=== PATIENT | female | born 1940 | race Caucasian/White ===

== ENCOUNTER 2017-02-01 09:47 | Observation (INO) | payer MEDICARE, OTHER ==
[~2017-02-01] VITALS: Ht 160 cm; Wt 94.0 kg
[~2017-02-01 09:47] MED LIST: ADLT ASA LOW81 MG PO; ALDACTONE25 MG PO; ASA LO-DOSE81 MG OR; BABY ASPIRIN81 MG OR; BACTRIM DS1 TAB PO; CALCIUM500 M1 OR; CARDIZEM CD120 MG PO; CIPROFLOXACN500 MG PO; CORDARONE200 MG OR; COUMADIN2 MG OR; COUMADIN2.5 MG OR; COUMADIN2.5 MG PO; COUMADIN5 MG PO; CRANBERRY PO; CRANBERRY1 TA1 PO; CRANBERRY250 MG OR; DIAZEPAM2 M1 PO; DOXYCYCL HYC100 MG PO; FISH OIL1 CAP PO; FOSAMAX70 MG OR; HYDRALAZINE50 MG PO; ISOSORB MONO60 MG PO; LASIX 20 MG TAB20 MG PO; LOPRESSOR 550 MG/TAB PO; LOPRESSOR12.5 MG OR; LOPRESSOR25 MG PO; LORTAB 5 OR; LOSARTAN/HCT1 TA2 PO; LOVASTATIN10 MG OR; LOVASTATIN40 M1 PO; MACROBID100 MG OR; MACRODANTIN50 MG PO; MAGNESIUM250 M1 PO; MAGNESIUM250 M2 PO; MAGNESIUM30 MG OR; METOPROL TAR25 M1 PO; NAPROXEN250 MG PO; NITROFUR MAC50 MG PO; NITROFURANTN100 MG PO; NITROSTAT0.4 MG PO; NYSTATIN100000 M4 TOP; OMEPRAZOLE20 MG PO; PLAVIX75 MG PO; PRILOSEC20 MG PO; PROPAFENONE150 M1 PO; TRANSDERM-NITR0.4 MG TD; VITAMIN D32000 UNIT PO; WARFARIN SODIUM5 MG PO; WARFARIN2 MG PO; WARFARIN4 MG PO
[2017-02-01 10:38] LABS: HEMATOCRIT 38.8 % (37.0-47.0); HEMOGLOBIN 12.4 g/dl (12.0-16.0); IMMATURE GRANULOCYTES 0.3 % (0.0-1.0); MEAN CELL VOLUME 90.9 fL CALC (80.0-100.0); NEUT# 4.99 thou/uL (2.00-7.15); RED BLOOD COUNT 4.27 mill/uL (4.20-5.60); RED CELL DISTRI WIDTH 14.1 % (11.5-15.5)
[2017-02-01 10:40] LABS: ALBUMIN 4.1 g/dL (3.2-5.0); AMYLASE 87 u/l (30-110); BILIRUBIN, TOTAL 0.6 mg/dL (0.0-1.4); BUN 21 mg/dL (8-23); BUN/CREATININE RATIO 17 (12-20 (CALC)); CALCIUM 9.2 mg/dL (8.4-10.2); CARBON DIOXIDE 29 mmol/l (22-30); CHLORIDE 96 mmol/l (95-108); CREATININE 1.2 mg/dL (0.5-1.0); GFR 43 ML/MIN (>=60 (CALC)); GFR FOR AFR.AMER. 53 ML/MIN (>=60 (CALC)); GLUCOSE 121 mg/dL (82-115); LIPASE 108 u/l (23-300); POTASSIUM 3.9 mmol/l (3.5-5.1); SGOT/AST 21 u/l (9-36); TOTAL PROTEIN 7.2 g/dL (6.3-8.2)
[2017-02-01 10:42] LABS: ALKALINE PHOSPHATASE 62 u/l (38-126); SGPT/ALT 23 u/l (11-66)
[2017-02-01 10:43] LABS: INTERNATIONAL NORMALIZED RATIO 2.2 RATIO (0.7-1.3)
[2017-02-01 10:44] LABS: ANION GAP 16 (6-22 (CALC)); SODIUM 137 mmol/l (137-146)
[2017-02-01 13:34] VITALS: BP 130/67
[2017-02-01 13:45] LABS: URINE BILIRUBIN - DIPSTICK NEGATIVE (NEGATIVE); URINE BLOOD DIPSTICK TRACE-INTACT (NEGATIVE); URINE COLOR YELLOW; URINE GLUCOSE - DIPSTICK NEGATIVE (NEGATIVE); URINE KETONE NEGATIVE (NEGATIVE); URINE NITRITE - DIPSTICK NEGATIVE (Negative); URINE PH 6.5 (4.5-8.0); URINE PROTEIN - DIPSTICK NEGATIVE (NEG-TRACE); URINE UROBILINOGEN - DIPSTICK 0.2 E.U./dL (0.2)
[2017-02-01 13:46] LABS: URINE LEUK ESTERASE SMALL (NEGATIVE)
[2017-02-01 13:47] LABS: URINE CLARITY SLIGHT CLOUDY
[2017-02-01 13:55] LABS: URINE BACTERIA MODERATE hpf; URINE EPITHELIAL CELLS MODERATE EPI/hpf (0-FEW); URINE WBC 20-50 WBC/hpf (0-5)
[2017-02-01 14:50] VITALS: BP 133/64
[2017-02-01 19:30] VITALS: BP 116/61
[2017-02-02 05:23] VITALS: BP 105/66
[2017-02-02 05:35] LABS: HEMOGLOBIN 12.5 g/dl (12.0-16.0); IMMATURE GRANULOCYTES 0.4 % (0.0-1.0); MEAN CELL VOLUME 90.5 fL CALC (80.0-100.0); MEAN CORPUSCULAR HGB CONC 32.1 g/L CALC (32.0-36.0); NEUT# 5.73 thou/uL (2.00-7.15); RED BLOOD COUNT 4.31 mill/uL (4.20-5.60); RED CELL DISTRI WIDTH 13.9 % (11.5-15.5)
[2017-02-02 05:39] LABS: INTERNATIONAL NORMALIZED RATIO 2.9 RATIO (0.7-1.3); PROTHROMBIN TIME 33.8 SECONDS (9.0-12.5)
[2017-02-02 05:41] LABS: CALCIUM 9.2 mg/dL (8.4-10.2); CREATININE 1.1 mg/dL (0.5-1.0); POTASSIUM 3.8 mmol/l (3.5-5.1)
[2017-02-02 08:30] VITALS: BP 103/64
[2017-02-02 11:18] VITALS: BP 121/63
== END 2017-02-02 14:35 | disposition home or self-care (01) ==
LOC: ENPENDDIS → ED 09:47 → ED-I 10:45 → ED 11:12 → MS2 11:13
PROVIDERS: Emergency Medicine; ADMIT Internal Medicine; ATTEND Internal Medicine
DX: I25.118 Atherosclerotic heart disease of native coronary artery with other forms of angina pectoris (principal); I11.9 Hypertensive heart disease without heart failure; E78.5 Hyperlipidemia, unspecified; I48.0 Paroxysmal atrial fibrillation; M81.0 Age-related osteoporosis without current pathological fracture; E66.01 Morbid (severe) obesity due to excess calories; R73.9 Hyperglycemia, unspecified; Z68.36 Body mass index [BMI] 36.0-36.9, adult; Z95.5 Presence of coronary angioplasty implant and graft; Z95.1 Presence of aortocoronary bypass graft; Z79.899 Other long term (current) drug therapy; Z79.01 Long term (current) use of anticoagulants

== ENCOUNTER 2018-01-28 08:39 | Observation (INO) | payer MEDICARE, OTHER ==
[~2018-01-28] VITALS: Ht 162.6 cm; Wt 75.4 kg
[~2018-01-28 08:39] MED LIST changes: +AMLODIPINE5 MG PO; +DOCUSATE CAL240 MG PO; +K-TABS10 MEQ PO; +MIRALAX3350 NF PO; +SURFAK240 MG/CAP PO
--- NOTE | 2018-01-28 08:55 | NUR ---
PATIENT TO ROOM VIA WHEELCHAIR AND PHYSICIAN AT BEDSIDE FOR EVAL
[2018-01-28] MEDS ORDERED: WARFARIN2 MG PO (09:09)
[2018-01-28] MEDS ORDERED: WARFARIN4 MG PO ×2 (09:09→09:10)
[2018-01-28] MEDS ORDERED: FUROSEMIDE20 MG PO (09:16)
[2018-01-28 09:26] LABS: HEMATOCRIT 37.7 % (37.0-47.0); HEMOGLOBIN 11.7 g/dl (12.0-16.0); IMMATURE GRANULOCYTES 0.4 % (0.0-1.0); MEAN CELL VOLUME 93.3 fL CALC (80.0-100.0); NEUT# 3.67 thou/uL (2.00-7.15); RED BLOOD COUNT 4.04 mill/uL (4.20-5.60); RED CELL DISTRI WIDTH 14.8 % (11.5-15.5)
--- NOTE | 2018-01-28 09:31 | NUR ---
PT STATES SHE REALLY DOESNT WANT THE MORPHINE, HER PAIN IS NOT THAT BAD, PLUS SHE STATES SHE HAD MORPHINE ONE TIME AFTER A SURGERY AND SHE FELT LIKE "I WAS GOING CRAZY". NOTIFIED, AND DECISION MADE AFTER SPOKE WITH PT IS TO HOLD GIVING THE MORPHINE TO SEE IF PAIN GOES AWAY WITH THE OTHER MEDICATIONS.
[2018-01-28 09:34] LABS: ALKALINE PHOSPHATASE 65 u/l (38-126); ANION GAP 16 (6-22 (CALC)); BILIRUBIN, TOTAL 0.5 mg/dL (0.0-1.4); BUN 16 mg/dL (8-23); BUN/CREATININE RATIO 16 (12-20 (CALC)); CARBON DIOXIDE 29 mmol/l (22-30); CHLORIDE 101 mmol/l (95-108); GFR 53 ML/MIN (>=60 (CALC)); GFR FOR AFR.AMER. > 60 ML/MIN (>=60 (CALC)); POTASSIUM 4.4 mmol/l (3.5-5.1); SGOT/AST 25 u/l (9-36); SGPT/ALT 33 u/l (11-66); SODIUM 141 mmol/l (137-146); TOTAL PROTEIN 7.2 g/dL (6.3-8.2)
--- NOTE | 2018-01-28 09:38 | NUR ---
PT UP TO BATHROOM
[2018-01-28 09:44] LABS: D-DIMER 0.31 mg/L (0.19-0.60)
[2018-01-28 09:47] LABS: PROTHROMBIN TIME 63.6 SECONDS (9.0-12.5)
[2018-01-28 09:48] LABS: INTERNATIONAL NORMALIZED RATIO 5.5 RATIO (0.7-1.3)
--- NOTE | 2018-01-28 10:00 | NUR ---
PT RESTING QUIETLY, NO DISTRESS NOTED, LAUGHING AND TALKING WITH STAFF MEMBERS, WATCHING TV.
--- NOTE | 2018-01-28 10:35 | NUR ---
IN ROOM TO DC IV. PT STATES "I CANT GO YET I STILL HAVE THE PAINS AND MY BLOOD PRESSURE WENT UP, AND THE DOCTOR SAID HE WAS COMING BACK TO CHECK SOMETHING." INFORMED PT WOULD SPEAK WITH EDP REGARDING COMPLAINTS. DR SCHRADER MADE AWARE ORDER FOR CLONIDINE GIVEN.
--- NOTE | 2018-01-28 11:23 | NUR ---
UPON GOING INTO SPEAK TO THE PT ABOUT DISCHARGE , SHE STATES THAT SHE IS JUST STARTED HAVING CHEST PAIN AGAIN, MADE AWARE. PT STATES SHE DOESNT FEEL LIKE SHE SHOULD GO HOME AND WANTS HER DOCTOR NOTIFIED.
--- NOTE | 2018-01-28 12:02 | NUR ---
PT TAKEN TO MED SURG AFTER REPORT CALLED. PER EVONNE AND TELE.
[2018-01-28 12:05] VITALS: BP 95/63
--- NOTE | 2018-01-28 12:05 | NUR ---
RECEIVED PT FROM ER VIA STRETCHER ACCOMPANIED BY STAFF. IV SITE IS FREE FROM REDNESS OR EDEMA. HR IS REG,PULSES ARE STRONG X4, ABD IS SOFT WITH ACTIVE BS. TELE MONITOR IN PLACE. CONTINUE TO OBSERVE AND MONITOR.
--- NOTE | 2018-01-28 16:00 | NUR ---
pt is relaxing in bed left a message with BY FOR PT BEING ADMITTED AND HAVING CP.
[2018-01-28 16:30] VITALS: BP 110/68
[2018-01-28 19:35] VITALS: BP 108/64
--- NOTE | 2018-01-28 19:40 | NUR ---
SPOKE WITH RE: CONSULTATION, THE PT /INR RESULTS. WILL RECHECK ON PT AND IF ANY RESULTS ARE ABN THEN WILL SHIP PT OUT.
--- NOTE | 2018-01-28 20:00 | NUR ---
PATIENT RESTING IN BED AT THIS TIME-AWAKE ALERT AND ORIENTEDX3-STATES THAT HER CHEST PAIN COMES AND GOES BUT IS NOT HAVING ANY CHEST PAIN AT THIS TIME. TELE MONITORING DEVICE INPLACE. HEP LOCK TO LEFT AC INTACT AND APPEARS HEALTHY AT THIS TIME. SAFETY PRECAUTIONS REINFORCED. CALL LIGHT IN REACH. WILL CONT TO MONITOR.
--- NOTE | 2018-01-29 03:51 | NUR ---
PATIENT APPEARS SLEEPING AT THIS TIME. CALL LIGHT IN REACH. WILL CONT TO MONITOR.
[2018-01-29 04:40] VITALS: BP 126/66
--- NOTE | 2018-01-29 04:56 | NUR ---
PATIENT RESTING IN BED-AWAKE ALERT AND ORIENTEDX3. LAB WORK DRAWN ORDERED. PATIENT WITH BANDAID TO ABD/UMBILICAL AREA WITH ABD HERNIA NOTED. STATES THAT SHE HAS ALREADY SEEN DR. BOWIE REGUARDING FURTHER TREATMENT. CALL LIGHT IN REACH. WILL CONT TO MONITOR.
[2018-01-29 05:19] LABS: HEMATOCRIT 32.9 % (37.0-47.0); HEMOGLOBIN 10.4 g/dl (12.0-16.0); IMMATURE GRANULOCYTES 0.2 % (0.0-1.0); MEAN CELL VOLUME 92.2 fL CALC (80.0-100.0); MEAN CORPUSCULAR HGB 29.1 pG CALC (26.0-32.0); MEAN CORPUSCULAR HGB CONC 31.6 g/L CALC (32.0-36.0); NEUT# 2.44 thou/uL (2.00-7.15); RED BLOOD COUNT 3.57 mill/uL (4.20-5.60); RED CELL DISTRI WIDTH 14.9 % (11.5-15.5)
[2018-01-29 05:28] LABS: INTERNATIONAL NORMALIZED RATIO 2.8 RATIO (0.7-1.3); PROTHROMBIN TIME 31.8 SECONDS (9.0-12.5)
[2018-01-29 05:34] LABS: ALBUMIN 3.2 g/dL (3.2-5.0); ALKALINE PHOSPHATASE 46 u/l (38-126); ANION GAP 15 (6-22 (CALC)); BILIRUBIN, TOTAL 0.4 mg/dL (0.0-1.4); BUN 17 mg/dL (8-23); BUN/CREATININE RATIO 19 (12-20 (CALC)); CARBON DIOXIDE 26 mmol/l (22-30); CHLORIDE 103 mmol/l (95-108); CREATININE 0.9 mg/dL (0.5-1.0); GFR 60 ML/MIN (>=60 (CALC)); GFR FOR AFR.AMER. > 60 ML/MIN (>=60 (CALC)); MAGNESIUM 1.9 mg/dL (1.6-2.3); SGOT/AST 28 u/l (9-36); SGPT/ALT 31 u/l (11-66); SODIUM 140 mmol/l (137-146); TOTAL PROTEIN 5.9 g/dL (6.3-8.2)
[2018-01-29 06:02] LABS: TSH, 3RD GENERATION 2.68 uIU/mL (0.47 - 4.68)
[2018-01-29 08:00] VITALS: BP 134/64
--- NOTE | 2018-01-29 08:00 | NUR ---
PT IS RELAXING IN BED WITH NO DISTRESS NOTED. IV SITE IS FREE FROM REDNESS OR EDEMA. HR IS REG, PULSES ARE STRONG X4, ABD IS SOFT WITH ACTIVE BS , TELE MONITOR IN PLACE.
[2018-01-29 09:15] VITALS: BP 134/64
--- NOTE | 2018-01-29 12:15 | NUR ---
PT IS SITTING ON THE SIDE OF THE BED, IV SITE DISCONTINEUD,CATHETER INTACT.
[2018-01-29] MEDS ORDERED: WARFARIN2 MG PO (12:28)
--- NOTE | 2018-01-29 12:58 | NUR ---
PT RECEIVED DISCHARGE INSTRUCTIONS AND VERBALIZED UNDERSTANDING. IV SITE DISCONTINEUD CATHETER INTACT. NO REDNESS OR EDEMA. TELE MONITOR IS DISCONTINUED.,
--- NOTE | 2018-01-29 13:15 | NUR ---
Discharge instructions given. Patient verbalizes understanding of same. Discharged in stable condition via Wheelchair to Home with family. All belongings sent with pt.ALL INSTRUCTIONS GIVEN AND VERBALIZED UNDERSTANDING.
== END 2018-01-29 13:00 | disposition home or self-care (01) ==
LOC: ED 08:39 → ED-I 09:01 → ED 09:01 → ED-I 11:13 → ED 11:30 → MS2 11:31
PROVIDERS: Family Medicine; Nurse Practitioner Family; ADMIT Internal Medicine; ATTEND Internal Medicine
DX: R07.9 Chest pain, unspecified (principal); I25.118 Atherosclerotic heart disease of native coronary artery with other forms of angina pectoris; I10 Essential (primary) hypertension; E78.5 Hyperlipidemia, unspecified; I48.0 Paroxysmal atrial fibrillation; M81.0 Age-related osteoporosis without current pathological fracture; R79.1 Abnormal coagulation profile; T45.515A Adverse effect of anticoagulants, initial encounter; Z95.1 Presence of aortocoronary bypass graft; Z95.5 Presence of coronary angioplasty implant and graft

== ENCOUNTER 2018-08-11 18:43 | Emergency (ER) | payer MEDICARE, OTHER ==
[~2018-08-11] VITALS: Ht 165.1 cm; Wt 90.9 kg
[~2018-08-11 18:43] MED LIST changes: +FUROSEMIDE20 MG PO
[2018-08-11 20:06] LABS: HEMATOCRIT 28.5 % (37.0-47.0); HEMOGLOBIN 8.6 g/dl (12.0-16.0); IMMATURE GRANULOCYTES 0.2 % (0.0-5.0); MEAN CELL VOLUME 94.4 fL CALC (80.0-100.0); MEAN CORPUSCULAR HGB 28.5 pG CALC (26.0-32.0); MEAN CORPUSCULAR HGB CONC 30.2 g/L CALC (32.0-36.0); NEUT# 2.97 thou/uL (2.00-7.15); RED BLOOD COUNT 3.02 mill/uL (4.20-5.60); RED CELL DISTRI WIDTH 18.4 % (11.5-15.5)
[2018-08-11 20:41] LABS: INTERNATIONAL NORMALIZED RATIO 1.1 RATIO (0.7-1.3)
[2018-08-11 20:42] LABS: ALBUMIN 3.5 g/dL (3.2-5.0); ALKALINE PHOSPHATASE 59 u/l (38-126); ANION GAP 13 (6-22 (CALC)); BILIRUBIN, TOTAL 0.2 mg/dL (0.0-1.4); BUN 23 mg/dL (8-23); BUN/CREATININE RATIO 21 (12-20 (CALC)); CARBON DIOXIDE 26 mmol/l (22-30); CHLORIDE 104 mmol/l (95-108); CREATININE 1.1 mg/dL (0.5-1.0); GFR 48 ML/MIN (>=60 (CALC)); GFR FOR AFR.AMER. 58 ML/MIN (>=60 (CALC)); SGOT/AST 16 u/l (9-36); SODIUM 139 mmol/l (137-146)
[2018-08-11 20:54] LABS: MYOGLOBIN 43 ng/mL (0 - 62)
[2018-08-11 22:14] LABS: URINE BILIRUBIN - DIPSTICK NEGATIVE (NEGATIVE); URINE BLOOD DIPSTICK NEGATIVE (NEGATIVE); URINE COLOR YELLOW; URINE GLUCOSE - DIPSTICK NEGATIVE (NEGATIVE); URINE KETONE NEGATIVE (NEGATIVE); URINE NITRITE - DIPSTICK NEGATIVE (Negative); URINE PH 5.5 (4.5-8.0); URINE PROTEIN - DIPSTICK NEGATIVE (NEG-TRACE); URINE UROBILINOGEN - DIPSTICK 0.2 E.U./dL (0.2)
[2018-08-11 22:15] LABS: URINE CLARITY CLOUDY; URINE LEUK ESTERASE MODERATE (NEGATIVE)
[2018-08-11 22:23] LABS: URINE BACTERIA MODERATE hpf; URINE SQUAMOUS EPITHELIAL CELL FEW EPI/hpf (0-FEW); URINE WBC TNTC WBC/hpf (0-5)
[2018-08-11] MEDS ORDERED: BACTRIM DS1 TAB PO (22:37)
[2018-08-11 23:17] VITALS: BP 139/63
== END 2018-08-11 23:17 | disposition home or self-care (01) ==
LOC: ED 18:43
PROVIDERS: Family Medicine
DX: N39.0 Urinary tract infection, site not specified (principal); R53.1 Weakness; D51.3 Other dietary vitamin B12 deficiency anemia; M19.90 Unspecified osteoarthritis, unspecified site; I10 Essential (primary) hypertension; I25.10 Atherosclerotic heart disease of native coronary artery without angina pectoris; E78.5 Hyperlipidemia, unspecified; Z79.01 Long term (current) use of anticoagulants; Z95.5 Presence of coronary angioplasty implant and graft; Z95.1 Presence of aortocoronary bypass graft

== ENCOUNTER 2018-10-11 07:24 | Day surgery (SDC) | payer MEDICARE, OTHER ==
[~2018-10-11] VITALS: Ht 162.6 cm; Wt 77.6 kg
[~2018-10-11 07:24] MED LIST changes: +MACROBID100 MG PO; +MAGNESIUM OXID400 M2 PO
[2018-10-11 10:25] VITALS: BP 138/70
== END 2018-10-11 10:20 | disposition home or self-care (01) ==
LOC: ENDO 07:24 → ORM 13:15 → ENDO 13:15
PROVIDERS: ATTEND Surgery
PROC: 0DBB8ZX Excision of Ileum, Via Natural or Artificial Opening Endoscopic, Diagnostic (ICD-10-PCS; principal; 2018-10-11)
PROC: 3E0H8GC Introduction of Other Therapeutic Substance into Lower GI, Via Natural or Artificial Opening Endoscopic (ICD-10-PCS; 2018-10-11)
PROC: 0DJ08ZZ Inspection of Upper Intestinal Tract, Via Natural or Artificial Opening Endoscopic (ICD-10-PCS; 2018-10-11)
DX: D64.9 Anemia, unspecified (principal); K63.5 Polyp of colon; K57.31 Diverticulosis of large intestine without perforation or abscess with bleeding; K64.4 Residual hemorrhoidal skin tags; K44.9 Diaphragmatic hernia without obstruction or gangrene

== ENCOUNTER 2018-11-08 08:45 | Emergency (ER) | payer MEDICARE, OTHER ==
[~2018-11-08] VITALS: Ht 162.6 cm; Wt 80.0 kg
[2018-11-08] MEDS ORDERED: CELEBREX100 M1 PO (10:22)
[2018-11-08] MEDS ORDERED: TRAMADOL HYDROC50 MG PO (10:22)
[2018-11-08 10:59] VITALS: BP 173/80
== END 2018-11-08 11:16 | disposition home or self-care (01) ==
LOC: ED 08:45
DX: S40.012A Contusion of left shoulder, initial encounter (principal); S20.212A Contusion of left front wall of thorax, initial encounter; M19.90 Unspecified osteoarthritis, unspecified site; I10 Essential (primary) hypertension; I25.10 Atherosclerotic heart disease of native coronary artery without angina pectoris; E78.5 Hyperlipidemia, unspecified; W18.39XA Other fall on same level, initial encounter; Y92.009 Unspecified place in unspecified non-institutional (private) residence as the place of occurrence of the external cause; Z95.1 Presence of aortocoronary bypass graft; Z95.5 Presence of coronary angioplasty implant and graft

== ENCOUNTER 2018-11-12 11:25 | Emergency (ER) | payer MEDICARE, OTHER ==
[~2018-11-12] VITALS: Ht 162.6 cm; Wt 76.8 kg
[~2018-11-12 11:25] MED LIST changes: +CELEBREX100 M1 PO; +TRAMADOL HYDROC50 MG PO
[2018-11-12 14:07] VITALS: BP 111/58
== END 2018-11-12 14:26 | disposition home or self-care (01) ==
LOC: ED 11:25
DX: M25.512 Pain in left shoulder (principal); M19.90 Unspecified osteoarthritis, unspecified site; I10 Essential (primary) hypertension; I48.91 Unspecified atrial fibrillation; I25.10 Atherosclerotic heart disease of native coronary artery without angina pectoris; E78.5 Hyperlipidemia, unspecified; Z95.1 Presence of aortocoronary bypass graft; Z95.5 Presence of coronary angioplasty implant and graft

== ENCOUNTER → 2018-11-29 | Outpatient (REF) | payer MEDICARE, OTHER | END | disposition home or self-care (01) | LOC: LAB 10:38 | PROVIDERS: ATTEND Internal Medicine | DX: R35.0 Frequency of micturition (principal); B95.2 Enterococcus as the cause of diseases classified elsewhere ==

== ENCOUNTER 2019-01-24 16:30 | Emergency (ER) | payer MEDICARE, OTHER ==
[~2019-01-24] VITALS: Ht 162.6 cm; Wt 80.0 kg
[2019-01-24 17:33] LABS: HEMATOCRIT 32.9 % (37.0-47.0); HEMOGLOBIN 9.6 g/dl (12.0-16.0); IMMATURE GRANULOCYTES 0.3 % (0.0-5.0); MEAN CELL VOLUME 88.4 fL CALC (80.0-100.0); MEAN CORPUSCULAR HGB 25.8 pG CALC (26.0-32.0); MEAN CORPUSCULAR HGB CONC 29.2 g/L CALC (32.0-36.0); NEUT# 3.51 thou/uL (2.00-7.15); RED BLOOD COUNT 3.72 mill/uL (4.20-5.60); RED CELL DISTRI WIDTH 16.5 % (11.5-15.5)
[2019-01-24 18:03] LABS: CREATININE 1.2 mg/dL (0.5-1.0); POTASSIUM 4.8 mmol/l (3.5-5.1)
[2019-01-24 18:10] VITALS: BP 129/57
== END 2019-01-24 18:10 | disposition home or self-care (01) ==
LOC: ED 16:30
PROVIDERS: Family Medicine
DX: G62.9 Polyneuropathy, unspecified (principal); R20.2 Paresthesia of skin; W18.30XA Fall on same level, unspecified, initial encounter; Y92.009 Unspecified place in unspecified non-institutional (private) residence as the place of occurrence of the external cause; I10 Essential (primary) hypertension; I48.91 Unspecified atrial fibrillation; I25.10 Atherosclerotic heart disease of native coronary artery without angina pectoris; Z95.5 Presence of coronary angioplasty implant and graft

== ENCOUNTER 2019-04-08 12:51 | Inpatient (IN) | payer MEDICARE, OTHER ==
[~2019-04-08] VITALS: Ht 160 cm; Wt 70.1 kg
--- NOTE | 2019-04-08 12:51 | NUR ---
PT ARRIVED VIA EMS IN NO ACUTE DISTRESS ALERT AND ORIENTED X3.
--- NOTE | 2019-04-08 12:51 | NUR ---
PT HAS DRIFT AND ATAXIA TO LT UPPER ARM D/T PAIN IN LT HUMERUS FROM A FALL SEVERAL MONTHS AGO
--- NOTE | 2019-04-08 13:30 | NUR ---
PT ALERT AND CONVERSIVE, ALERT AND ORIENTED X3. PT MAEW EXCEPT UNABLE TO LIFT LT ARM VERY FAR D/T PAIN TO LT HUMERUS FROM PREVIOUS FALL (PER PT) DR TURNER AWARE.
[2019-04-08 13:34] LABS: HEMOGLOBIN 10.4 g/dl (12.0-16.0); IMMATURE GRANULOCYTES 0.2 % (0.0-5.0); MEAN CELL VOLUME 93.1 fL CALC (80.0-100.0); MEAN CORPUSCULAR HGB 27.7 pG CALC (26.0-32.0); MEAN CORPUSCULAR HGB CONC 29.7 g/L CALC (32.0-36.0); NEUT# 2.57 thou/uL (2.00-7.15); RED BLOOD COUNT 3.76 mill/uL (4.20-5.60); RED CELL DISTRI WIDTH 20.8 % (11.5-15.5)
[2019-04-08 13:48] LABS: ALBUMIN 3.9 g/dL (3.2-5.0); ALKALINE PHOSPHATASE 58 u/l (38-126); ANION GAP 13 (6-22 (CALC)); BILIRUBIN, TOTAL 0.6 mg/dL (0.0-1.4); BUN 24 mg/dL (8-23); BUN/CREATININE RATIO 20 (12-20 (CALC)); CARBON DIOXIDE 30 mmol/l (22-30); CHLORIDE 99 mmol/l (95-108); CREATININE 1.2 mg/dL (0.5-1.0); GFR 43 ML/MIN (>=60 (CALC)); GFR FOR AFR.AMER. 52 ML/MIN (>=60 (CALC)); POTASSIUM 4.3 mmol/l (3.5-5.1); SGOT/AST 18 u/l (9-36); SODIUM 138 mmol/l (137-146); TOTAL PROTEIN 6.6 g/dL (6.3-8.2)
--- NOTE | 2019-04-08 14:05 | NUR ---
ASSISTED PT TO STANDING POSITION FOR ORTHOSTATIC BPS. PT BECAME VERY DIZZY AND WEAK WITH STANDING, RETURNED TO BED AND PT STATES SHE FEELS BETTER. AWARE.
[2019-04-08] MEDS ORDERED: ASPIRIN81 MG PO (14:11)
[2019-04-08] MEDS ORDERED: VITAMIN D31000 UNI1 PO (14:12)
[2019-04-08] MEDS ORDERED: OMEGA-3 FISH1000 MG PO (14:12)
[2019-04-08] MEDS ORDERED: NITRO-DUR0.4 MG/HR TD (14:13)
[2019-04-08] MEDS ORDERED: PROPAFENONE150 M1 PO (14:14)
[2019-04-08] MEDS ORDERED: CRANBERRY200 MG PO (14:14)
[2019-04-08] MEDS ORDERED: OMEPRAZOLE20 MG PO (14:15)
[2019-04-08] MEDS ORDERED: POT CHLORIDE10 ME1 PO (14:15)
[2019-04-08] MEDS ORDERED: METOPROL TAR25 M1 PO (14:15)
[2019-04-08] MEDS ORDERED: CELECOXIB100 MG PO (14:16)
[2019-04-08] MEDS ORDERED: LOVASTATIN10 MG PO (14:16)
[2019-04-08] MEDS ORDERED: LASIX 20 MG TAB20 MG PO (14:16)
[2019-04-08] MEDS ORDERED: CYMBALTA30 MG PO (14:18)
[2019-04-08 14:40] LABS: URINE BILIRUBIN - DIPSTICK NEGATIVE (NEGATIVE); URINE BLOOD DIPSTICK TRACE-INTACT (NEGATIVE); URINE COLOR YELLOW; URINE GLUCOSE - DIPSTICK NEGATIVE (NEGATIVE); URINE KETONE NEGATIVE (NEGATIVE); URINE NITRITE - DIPSTICK NEGATIVE (Negative); URINE PH 6.5 (4.5-8.0); URINE PROTEIN - DIPSTICK 30 mg/dL (NEG-TRACE); URINE SPECIFIC GRAVITY 1.015; URINE UROBILINOGEN - DIPSTICK 0.2 E.U./dL (0.2)
[2019-04-08 14:41] LABS: URINE LEUK ESTERASE LARGE (NEGATIVE)
[2019-04-08 14:46] LABS: URINE BACTERIA FEW hpf; URINE SQUAMOUS EPITHELIAL CELL FEW EPI/hpf (0-FEW); URINE WBC TNTC WBC/hpf (0-5)
--- NOTE | 2019-04-08 15:05 | NUR ---
FAMILY AT BEDSIDE. VSS. PT LAUGHING AND CONVERSIVE. DENIES CP OR SOB. DENIES DIZZINESS AT THIS TIME. NEURO CHECK WNL.
[2019-04-08] MEDS ORDERED: MACRODANTIN50 MG PO (15:16)
[2019-04-08] MEDS ORDERED: CYMBALTA60 MG PO (15:17)
--- NOTE | 2019-04-08 15:42 | NUR ---
CALLED REPORT TO TELLY TALBOT MS2
--- NOTE | 2019-04-08 15:55 | NUR ---
TRANSPORTED TO AL VIA STRETCHER ON DIRECTOR OF RESOURCE DEVELOPMENT IN NO DISTRESS.
[2019-04-08 16:07] VITALS: BP 153/76
--- NOTE | 2019-04-08 16:11 | NUR ---
ASSESSMENT DONE. PT IS A&O X3. PT DENIES PAIN AT THIS TIME OR DIZZINESS. TELE IN PLACE. RESPS EVEN AND UNLABORED. PT HAS LEFT SIDE WEAKNESS THAT IS NOT NEW. PT HAS A SURGICAL WOUND IN ABD AND STATED ITS BEEN THERE FOR MONTHS. PICTURE TAKEN. PT DENIES NEEDS AT THIS TIME. SAFETY PRECAUTION REINFORCED AND CALL LIGHT.
--- NOTE | 2019-04-08 19:00 | NUR ---
RECEIVED REPORT FROM NURSE ANTIONE PATIENT IN BED, WATCHING TV, EVEN UNLABORED BREATHING CALL LIGHT AT REACH.
[2019-04-08 19:45] VITALS: BP 135/67
--- NOTE | 2019-04-08 20:10 | NUR ---
PATIENT ALERT AMD ORIENTED, ABLE TO MAKE NEEDS KNOWN, WITH AN ONGOING IV OF NORMAL SALINE @100CC/HR INFUSING WELL ON LAC, REMAINS ON TELE SR 61, PATIENT ASSISTED TO THE COMMODE AND ASSISTED BACK IN BED, CALL LIGHT AT REACH.
--- NOTE | 2019-04-08 23:39 | NUR ---
PATIENT ALERT AND ORIENTED, COMPLIANT WITH THE USED OF CALL LIGHT, ASSISTED TO BEDSIDE COMMODE AT THIS TIME, DENIES PAIN OR DISCOMFORTS CALL LIGHT AT REACH.
[2019-04-09] VITALS (8 sets, daily range): BP systolic 123–155; BP diastolic 63–80
--- NOTE | 2019-04-09 04:57 | NUR ---
PATIENT RESTING IN BED, ORTHOSTATIC V/S TAKEN AND RECORDED, CURRENTLY RESTING IN BED EYES CLOSED CALL LIGHT AT REACH.
--- NOTE | 2019-04-09 07:49 | NUR ---
SHIFT CHANGE REPORT, PT AWAKE ALERT AND ORIENTED, NO C/O DISCOMFORT, TELE MONITOR IN PLACE, ALL NEEDS ADDRESSED, CALL WIN IN REACH.
--- NOTE | 2019-04-09 11:30 | NUR ---
SITTING UP IN RECLINER, DR HEREDIA ROUNDED AND DISCUSSED PLAN OF CARE FOR PHYSICAL THERAPY, PT STATED SHE DOES NOT WANT SHAYNE SHAYNE PULLED UP HER ARM BEFORE DURING PHYSICAL THERAPY WHEN SHE HEARD A "POP" IN SHOULDER AND HER SHOULDER SO BADLY THAT SHE HAD TO HAVE ANOTHER SURGERY.
--- NOTE | 2019-04-09 15:30 | NUR ---
ASSISTED TO BSC AND BACK TO BED, ALL NEEDS MET/ADDRESSED, CALL WIN IN REACH.
--- NOTE | 2019-04-09 19:09 | NUR ---
RECEIVED REPORT FROM NURSE LOPEZ, PATIENT APPEARS TO BE SLEPPING WITH EYES CLOSED, NO DISCOMFORTS NOTED AT THIS TIME, WITH EVEN UNLABORED BREATHING.
--- NOTE | 2019-04-09 20:11 | NUR ---
PATIENT ALERT AND ORIENTED ABLE TO MAKE NEEDS KNOWN, EVEN UNLABORED BREATHING, DENIES PAIN OR DISCOMFORT AT THIS TIME, PATIENT ASSISTED TO BED SIDE COMMODE, NOTED TO HAVE WEAKNESS, ON LLE, ON TELE SR 62, WILL CONTINUE TO MONITOR.
--- NOTE | 2019-04-09 23:28 | NUR ---
PATIENT APPEARS TO BED SLEEPING WITH EYES CLOSED WITH EVEN UNLABOTRED BREATHING CALL LIGHT AT REACH.
[2019-04-10] VITALS (8 sets, daily range): BP systolic 104–153; BP diastolic 60–73
--- NOTE | 2019-04-10 04:38 | NUR ---
PATIENT ALERT AND ORIENTED, ABLE TO MAKE NEEDS KNOWN, PATIENT ASSISTED TO BEDSIDE COMMODE AND ASSISTED BACK IN BED, CURRENTLY RESTING IN BED, READING BOOK CALL LIGHT WITHIN REACH.
--- NOTE | 2019-04-10 07:44 | NUR ---
SHIFT CHANGE REPORT, PT SLEEPING BUT AWAKENED TO VERBAL STIMULI, ORIENTED, C/O LOWER BACK PAIN @ 12/10 REPORTING SHE WAS MEDICATED EARLIER AND HAD SOME RELIEF, TELE MONITOR IN PLACE, SET UP FOR MEAL, CALL WIN IN REACH.
--- NOTE | 2019-04-10 12:05 | NUR ---
PT WAS SEEN FOR FUNCTIONAL ACTIVITY. SHE DID SUPINE TO SIT INDEPENDENTLY, THEN MAINTAINED INDEPENDENT SITTING ON BED ~2 MINS PRIOR TO STANDING UP. DENIES DIZZINESS DURING SITTING UP POSITION. SIT TO STAND WITH MOD A AND WALKER, ALSO PROVIDED VERBAL CUES ON PROPER POSTURE. NOTED NARROW JUSTUS WITH FEET TOGETHER. PT TOLERATED STATIC STANDING FOR ~2 MINS PRIOR TO REQUESTING TO BE SAT DOWN ON BED D/T DIZZINESS. SHE THEN AMBULATED FROM BED TO RECLINER WITH RW AND CGA, NO REPORTS OF PAIN ON L HIP. LEFT PT COMFORTABLY SITTING IN THE RECLINER WITH LEG REST ELEVATED. CALL WIN WITHIN REACH. [facility]: [facility] POINTS, SNF
--- NOTE | 2019-04-10 12:43 | NUR ---
DR HEREDIA ROUNDED, DISCUSSED D/C PLAN FOR TOMORROW, WROTE ORDERS, PT STATED UNDERSTANDING, ALL NEEDS ADDRESSED.
[2019-04-10 12:47] LABS: HEMATOCRIT 32.1 % (37.0-47.0); HEMOGLOBIN 9.7 g/dl (12.0-16.0); IMMATURE GRANULOCYTES 0.3 % (0.0-5.0); MEAN CELL VOLUME 91.5 fL CALC (80.0-100.0); MEAN CORPUSCULAR HGB 27.6 pG CALC (26.0-32.0); MEAN CORPUSCULAR HGB CONC 30.2 g/L CALC (32.0-36.0); NEUT# 1.9 thou/uL (2.00-7.15); RED BLOOD COUNT 3.51 mill/uL (4.20-5.60); RED CELL DISTRI WIDTH 20.4 % (11.5-15.5)
[2019-04-10 13:03] LABS: ALBUMIN 3.2 g/dL (3.2-5.0); ALKALINE PHOSPHATASE 50 u/l (38-126); ANION GAP 13 (6-22 (CALC)); BUN 16 mg/dL (8-23); BUN/CREATININE RATIO 18 (12-20 (CALC)); CARBON DIOXIDE 27 mmol/l (22-30); CHLORIDE 101 mmol/l (95-108); CREATININE 0.9 mg/dL (0.5-1.0); GFR 60 ML/MIN (>=60 (CALC)); GFR FOR AFR.AMER. > 60 ML/MIN (>=60 (CALC)); MAGNESIUM 1.9 mg/dL (1.6-2.3); SGOT/AST 16 u/l (9-36); SODIUM 136 mmol/l (137-146); TOTAL PROTEIN 5.6 g/dL (6.3-8.2)
[2019-04-10 13:11] LABS: BILIRUBIN, TOTAL 0.3 mg/dL (0.0-1.4)
--- NOTE | 2019-04-10 15:57 | NUR ---
PT WAS SEEN AGAIN THIS PM, FOR GT. SHE WAS INDEPENDENT ON BED MOB. AND TRANSFERS. AMBULATED IN THE ROOM W/ RW AND CGA ~10 FT. X 2 WITH NO SIGNS OF INSTABILITY OR COMPLAINT OF DIZZINESS. SHE THEN RETURNED TO BED, INDEP. REPOSITIONED HERSELF. HER AMPAC SIGNIFICANTLY IMPROVED HOWEVER WILL STILL BENEFIT FROM SNF WITH PHYSICAL THERAPY FOR CONDITIONING AND BALANCE REHAB. PT IS APPROPRIATE TO BE SEEN ONCE A DAY ONLY HER CONDITION HAS IMPROVED FROM THE TIME SHE WAS SEEN FOR INITIAL EVALUATION.
--- NOTE | 2019-04-10 16:00 | NUR ---
DR HEREDIA REQUEST ORTHOSTATICS, PROCEDURE DONE AND RESULTS FURNISHED TO , PT TOLERATED WITHOUT DIFFICULTY AND ASSISTED BACK TO BED TO REST.
--- NOTE | 2019-04-10 19:30 | NUR ---
PATIENT RESTING IN BED WITH HOB ELEVATED. PATIENT IS VERY PALE, AWAKE ALERT AND ORIENTEDX3. PATIENT WITH TELE MONITOR IN PLACE. NEEDS ASSIST TO GET OOB TO BSC TO VOID AND THEN BACK TO BED. SALINE LOCK TO LEFT AC IN PLACE. SAFETY PRECAUTIONS REINFORCED. CALL LIGHT IN REACH. WILL CONT TO MONITOR.
--- NOTE | 2019-04-10 22:48 | NUR ---
PATIENT RESTING IN BED-NEW IV SITE STARTED TO RIGHT WRIST-#22 GAUGE WITH GOOD BLOOD RETURN. IV SITE TO LEFT AC DC'ED WITH CATH INTACT-EMS SITE THAT WAS OUTDATED. PATIENT MEDICATED FOR SLEEP WITH SONATA 5MG PO. SAFETY PRECAUTIONS REINFORCED. CALL LIGHT IN REACH. WILL CONT TO MONITOR.
[2019-04-11 00:10] VITALS: BP 151/72
[2019-04-11 04:25] VITALS: BP 158/65
--- NOTE | 2019-04-11 04:56 | NUR ---
PATIENT CALLED ASSISTED TO BSC TO VOID-ASSISTED BACK TO BED. TELE MONITOR IN PLACE. IV SITE TO RIGHT WRIST INTACT. SAFETY PRECAUTIONS REINFORCED. CALL LIGHT IN REACH. WILL CONT TO MONITOR.
[2019-04-11 04:59] LABS: HEMATOCRIT 32.6 % (37.0-47.0); HEMOGLOBIN 9.8 g/dl (12.0-16.0); IMMATURE GRANULOCYTES 0.3 % (0.0-5.0); MEAN CELL VOLUME 92.9 fL CALC (80.0-100.0); MEAN CORPUSCULAR HGB 27.9 pG CALC (26.0-32.0); MEAN CORPUSCULAR HGB CONC 30.1 g/L CALC (32.0-36.0); NEUT# 1.62 thou/uL (2.00-7.15); RED BLOOD COUNT 3.51 mill/uL (4.20-5.60); RED CELL DISTRI WIDTH 20.4 % (11.5-15.5)
[2019-04-11 05:24] LABS: ALBUMIN 2.9 g/dL (3.2-5.0); ALKALINE PHOSPHATASE 46 u/l (38-126); ANION GAP 11 (6-22 (CALC)); BILIRUBIN, TOTAL 0.3 mg/dL (0.0-1.4); BUN 17 mg/dL (8-23); BUN/CREATININE RATIO 18 (12-20 (CALC)); CARBON DIOXIDE 27 mmol/l (22-30); CHLORIDE 104 mmol/l (95-108); GFR 53 ML/MIN (>=60 (CALC)); GFR FOR AFR.AMER. > 60 ML/MIN (>=60 (CALC)); MAGNESIUM 1.8 mg/dL (1.6-2.3); POTASSIUM 4.2 mmol/l (3.5-5.1); SGOT/AST 17 u/l (9-36); SODIUM 138 mmol/l (137-146); TOTAL PROTEIN 5.3 g/dL (6.3-8.2)
[2019-04-11 07:22] VITALS: BP 165/88
--- NOTE | 2019-04-11 08:15 | NUR ---
PT IS SITTING IN RECLINER. ASSESSMENT DONE TELE IN PLACE. PT IS A&O X3. PT DENIES PAIN AT THIS TIME. PT EATING HER BREAKFAST. PT DENIES ANY OTHER NEEDS AT THIS TIME. CALL LIGHT IN REACH.
[2019-04-11 11:10] VITALS: BP 123/60
--- NOTE | 2019-04-11 11:34 | NUR ---
PATIENT SEE BY P.T. TODAY FOR THERAPEUTIC EXERCISE AND THERAPEUTIC DYNAMIC ACTIVITIES. ON ENTRY PATIENT WAS IN CHAIR WITH LEGS RAISED. PATIENT STS W/ CGA WITH BILATERAL UPPER EXTREMITY PUSH FROM ARMS. PATIENT CONFIDENCE CONTINUES TO IMPROVE AND STATIC BALANCE TOLERANCE REMAINS AT APPROXIMATELY 3 MINUTES W/2WW. PATIENT PERFORMED STANDING HIGH KNEE MARCHES X10 BILATERALLY AND WAS ENCOURAGED TO PERFORM WITH NURSES WHEN USING 2WW. PATIENT THEN USED 2WW AND CGA TO MOBILIZE APPROX. 15 FT. PATIENT RETURNED TO CHAIR AFTER C/O FEELING THAT KNEES WERE GOING TO GIVE WAY. PATIENT RETURNED TO CHAIR WITHOUT ISSUE. CHAIR EXERCISES PERFORMED LAQS WITH HOLD X10 BILATERALLY AND HIGH KNEE MARCHES IN SITTING X10 BILATERALLY W/ HOLD FOR 5 SECONDS. AMPAC REMAINS AT 14 HIGHLIGHTING THAT PATIENTS CURRENT LEVEL SUGGESTS ECF FOR MORE INTENSIVE PHYSICAL THERAPY INPUT. P.T. HAS EXPLAINED RECOMMENDATION AND WILL CONTINUE TO EDUCATE PATIENT ON REASONS FOR RECOMMENDATION. CALL BUTTON IN REACH WHEN LEAVING ROOM. NO ADVERSE EFFECTS.
--- NOTE | 2019-04-11 12:16 | NUR ---
PT IS SITTING IN RECLINER. DR. HEREDIA IN ROOM TO DISCUSS POC WITH PT. CALL LIGHT IN REACH.
--- NOTE | 2019-04-11 14:55 | NUR ---
O.T. RECEIVED PATIENT SITTING IN RECLINER AND PATIENT PERFORMED SIT <-> STAND WITH MIN A. USED R.W. TO BATHROOM AND PERFORMED TOILET TRANSFER WITH CG WITH COMMODE OVER TOILET. PT. TOILETED INDEPENDENTLY AND PERFORMED SIT <-> STAND FROM COMMODE WITH CG, USED R.W. TO SINK AND PERFORMED GROOMING AT SINK X 5 MIN WITH CG. PATIENT WILL BENEFIT FROM SHORT-TERM REHAB PRIOR TO D/C HOME AND PATIENT AGREES.
[2019-04-11 15:15] VITALS: BP 121/65
--- NOTE | 2019-04-11 15:56 | NUR ---
PT IS SITTING IN RECLINER. NO S/S OF DISTRESS NOTED. PT DENIES NEEDS AT THIS TIME. CALL LIGHT IN REACH.
[2019-04-11 19:40] VITALS: BP 132/66
--- NOTE | 2019-04-11 20:00 | NUR ---
PATIENT RESTING IN BED AT THIS TIME-AWAKE ALERT AND ORIENTEDX3. PATIENT STATES THAT SHE IS GOING TO REHAB TOMORROW BEFORE GOING HOME. TELE MONITOR IN PLACE. SALINE LOCK TO RIGHT WRIST INTACT AND APPEARS HEALTHY AT THIS TIME. SAFETY PRECAUTIONS REINFORCED. CALL LIGHT IN REACH. WILL CONT TO MONITOR,
--- NOTE | 2019-04-11 23:00 | NUR ---
PATIENT RESTING IN BED-MEDICATED FOR SLEEP WITH SONATA 5MG PO. CALL LIGHT IN REACH. WILL CONT TO MONITOR.
[2019-04-12 01:00] VITALS: BP 147/74
--- NOTE | 2019-04-12 03:30 | NUR ---
PATIENT APPEARS SLEEPING IN BED WITH EYES CLOSED. RESP ARE EVEN AND UNLABORED. TELE MONITOR IN PLACE. CALL LIGHT IN REACH. WILL CONT TO MONITOR.
[2019-04-12 04:50] VITALS: BP 146/71
[2019-04-12 07:39] VITALS: BP 121/78
--- NOTE | 2019-04-12 08:00 | NUR ---
PT IS SITTING IN RECLINER. ASSESSMENT DONE. TELE IN PLACE. RESPS EVEN AND UNLABORED. PT DENIES PAIN AT THIS TIME. PT DENIES NEEDS. #22 RW THAT APPEARS HEALTHY. CALL LIGHT IN REACH.
[2019-04-12 11:30] VITALS: BP 113/57
--- NOTE | 2019-04-12 11:41 | NUR ---
PT IS SITTING IN THE RECLINER. DR. HEREDIA IN ROOM TO DISCUSS POC. CALL LIGHT IN REACH.
[2019-04-12] MEDS ORDERED: KEFLEX500 M1 PO (12:15)
[2019-04-12 14:24] VITALS: BP 143/72
--- NOTE | 2019-04-12 14:58 | NUR ---
Discharge instructions given. Patient verbalizes understanding of same. Discharged in stable condition via Wheelchair to *Other with staff. All belongings sent with pt.
--- NOTE | 2019-04-12 15:09 | NUR ---
REPORT GIVEN TO GENARO SMITH.
--- NOTE | 2019-04-12 15:59 | NUR ---
Amended note for eval done 04/09/19: Recommendation for DC should read as follows- Recommend patient be DC to ECF Patient is not appropriate for PRISON
== END 2019-04-12 14:45 | DRG 312 ==
LOC: ED 12:51 → ED-I 15:00 → ED 15:17 → MS2 15:18
PROVIDERS: Emergency Medicine; ADMIT Internal Medicine; ATTEND Internal Medicine Nephrology
DX: I95.1 Orthostatic hypotension (principal); N39.0 Urinary tract infection, site not specified; I10 Essential (primary) hypertension; I25.10 Atherosclerotic heart disease of native coronary artery without angina pectoris; G62.9 Polyneuropathy, unspecified; E78.5 Hyperlipidemia, unspecified; I48.0 Paroxysmal atrial fibrillation; M19.90 Unspecified osteoarthritis, unspecified site; M81.0 Age-related osteoporosis without current pathological fracture; F41.8 Other specified anxiety disorders; K21.9 Gastro-esophageal reflux disease without esophagitis; B96.1 Klebsiella pneumoniae [K. pneumoniae] as the cause of diseases classified elsewhere; Z95.1 Presence of aortocoronary bypass graft; Z95.5 Presence of coronary angioplasty implant and graft; Z88.9 Allergy status to unspecified drugs, medicaments and biological substances; E78.49 Other hyperlipidemia
CPT/HCPCS: G0378

== ENCOUNTER 2019-05-08 14:58 | Emergency (ER) | payer MEDICARE, OTHER ==
[~2019-05-08] VITALS: Ht 160 cm; Wt 67.0 kg
[~2019-05-08 14:58] MED LIST changes: +ASPIRIN81 MG PO; +CELECOXIB100 MG PO; +CRANBERRY200 MG PO; +CYMBALTA30 MG PO; +CYMBALTA60 MG PO; +KEFLEX500 M1 PO; +LOVASTATIN10 MG PO; +NITRO-DUR0.4 MG/HR TD; +OMEGA-3 FISH1000 MG PO; +POT CHLORIDE10 ME1 PO; +VITAMIN D31000 UNI1 PO
[2019-05-08 20:35] VITALS: BP 178/89
== END 2019-05-08 20:35 | disposition short-term general hospital (02) ==
LOC: ED 14:58
DX: S02.0XXA Fracture of vault of skull, initial encounter for closed fracture (principal); S06.4X0A Epidural hemorrhage without loss of consciousness, initial encounter; S32.512A Fracture of superior rim of left pubis, initial encounter for closed fracture; W01.0XXA Fall on same level from slipping, tripping and stumbling without subsequent striking against object, initial encounter; M54.5 Low back pain; Y93.E8 Activity, other personal hygiene; Y92.002 Bathroom of unspecified non-institutional (private) residence as the place of occurrence of the external cause
CPT/HCPCS: J1953